=== PATIENT | female | born 1990 | race Caucasian/White ===

== ENCOUNTER → 2017-05-06 | Outpatient (CLI) | payer OTHER ==
[~2017-05-06] MED LIST: ADVIL200 MG PO; AMOXICILLIN500 MG PO; BACTRIM DS 8001 TA1 PO; BACTRIM DS 8001 TAB PO; BENADRYL50 MG PO; BIRTH CONTROL; CLINDAMYCIN HC300 MG PO; KENALOG0.1% TP; MACROBID100 M1 PO; MEDROL DOSEPAK4 MG PO; MOTRIN800 MG PO; PREDNICOT20 MG PO; PRENATAL1 TA1 PO; VICODIN 5/500 505 MG PO
== END | disposition home or self-care (01) ==
LOC: US 11:00
DX: N63.23 Unspecified lump in the left breast, lower outer quadrant (principal)

== ENCOUNTER 2018-04-16 14:00 | Emergency (ER) | payer OTHER ==
[~2018-04-16] VITALS: Ht 162.5 cm; Wt 95.3 kg
[2018-04-16] MEDS ORDERED: AMOXICILLIN500 M3 PO (15:45)
== END 2018-04-16 16:07 | disposition home or self-care (01) ==
LOC: ED 14:00
DX: O99.512 Diseases of the respiratory system complicating pregnancy, second trimester (principal); J18.1 Lobar pneumonia, unspecified organism; Z3A.27 27 weeks gestation of pregnancy

== ENCOUNTER → 2019-04-02 | Outpatient (CLI) | payer OTHER ==
[~2019-04-02] MED LIST changes: +AMOXICILLIN500 M3 PO; +CYCLOBENZAPRINE5 M3 PO; +Motrin,Rufen800 MG PO
== END | disposition home or self-care (01) ==
LOC: US 13:54
DX: Z34.82 Encounter for supervision of other normal pregnancy, second trimester (principal); Z3A.20 20 weeks gestation of pregnancy

== ENCOUNTER → 2019-05-21 | Outpatient (CLI) | payer OTHER | END | disposition home or self-care (01) | LOC: US 05-10 14:00 | DX: Z34.82 Encounter for supervision of other normal pregnancy, second trimester (principal); Z3A.27 27 weeks gestation of pregnancy ==

== ENCOUNTER → 2023-03-28 | Outpatient (CLI) | payer OTHER | END | disposition home or self-care (01) | LOC: MRI 08:13 | PROVIDERS: ATTEND Nurse Practitioner Family | DX: H53.9 Unspecified visual disturbance (principal); R51.9 Headache, unspecified; R42 Dizziness and giddiness ==

== ENCOUNTER → 2024-04-06 | Outpatient (CLI) | payer OTHER | END | disposition home or self-care (01) | LOC: RAD 01:11 | PROVIDERS: ATTEND Nurse Practitioner Family | DX: R59.9 Enlarged lymph nodes, unspecified (principal) ==

== ENCOUNTER → 2024-06-25 | Outpatient (CLI) | payer OTHER | END | disposition home or self-care (01) | LOC: LAB 17:21 | PROVIDERS: ATTEND Nurse Practitioner Family | DX: R30.0 Dysuria (principal) ==